=== PATIENT | female | born 1965 | race Caucasian/White ===

== ENCOUNTER 2022-08-12 04:02 | Day surgery (SDC) | payer OTHER ==
[2022-08-12] VITALS (498 sets, daily range): BP systolic 80–138; BP diastolic 45–75
[~2022-08-12] VITALS: Ht 172.7 cm; Wt 65.3 kg
[2022-08-12 07:41] LABS: BASO% 0.6 % (0-3); EOS% 2.9 % (0-8); HEMATOCRIT 39.6 % (37.0-47.0); HEMOGLOBIN 13.4 g/dl (12.0-16.0); LYMPH% 34.6 % (15-41); MEAN CELL VOLUME 89.6 fL CALC (80.0-100.0); MEAN CORPUSCULAR HGB 30.3 pG CALC (26.0-32.0); MEAN CORPUSCULAR HGB CONC 33.8 g/dL CAL (32.0-36.0); MONO% 6.3 % (2-13); NEUT# 2.93 thou/uL (2.00-7.15); NEUT% 55.6 % (42-76); RED BLOOD COUNT 4.42 mill/uL (4.20-5.60); RED CELL DISTRI WIDTH 13.3 % (11.5-15.5)
[2022-08-12 07:59] LABS: ALKALINE PHOSPHATASE 97 u/l (38-126); ANION GAP 12 (6-22 (CALC)); BUN 12 mg/dL (7-17); BUN/CREATININE RATIO 18 (12-20 (CALC)); CARBON DIOXIDE 27 mmol/l (22-30); CHLORIDE 104 mmol/l (95-108); CREATININE 0.7 mg/dL (0.5-1.0); GFR FOR AFR.AMER. > 60 ML/MIN (>=60 (CALC)); GFR OTHER RACES > 60 ML/MIN (>=60 (CALC)); POTASSIUM 3.9 mmol/l (3.5-5.1); SGOT/AST 29 u/l (14-36); SODIUM 139 mmol/l (137-146); TOTAL PROTEIN 8.7 g/dL (6.3-8.2)
[2022-08-12] MEDS ORDERED: INDOMETHACIN50 MG PO (08:36)
[2022-08-12] MEDS ORDERED: METHYLPHENID20 MG PO (08:37)
[2022-08-12] MEDS ORDERED: NALTREXONE50 MG PO ×2 (15:11→15:28)
[2022-08-12] MEDS ORDERED: KLONOPIN2 MG PO ×2 (15:12→15:28)
[2022-08-12] MEDS ORDERED: CLONIDINE0.1 MG PO ×2 (15:12→15:28)
[2022-08-13 03:41] VITALS: BP 133/63
[2022-08-13 06:02] VITALS: BP 133/63
[2022-08-13 06:09] LABS: BASO% 0.1 % (0-3); HEMOGLOBIN 14.7 g/dl (12.0-16.0); IMMATURE GRANULOCYTES 0.2 % (0.0-5.0); LYMPH% 11.3 % (15-41); MEAN CELL VOLUME 91.3 fL CALC (80.0-100.0); MEAN CORPUSCULAR HGB 28.4 pG CALC (26.0-32.0); MEAN CORPUSCULAR HGB CONC 31.1 g/dL CAL (32.0-36.0); MONO% 2.7 % (2-13); NEUT# 9.59 thou/uL (2.00-7.15); NEUT% 85.7 % (42-76); RED BLOOD COUNT 5.17 mill/uL (4.20-5.60); RED CELL DISTRI WIDTH 13.6 % (11.5-15.5)
[2022-08-13 06:18] LABS: HEMATOCRIT 47.2 % (37.0-47.0)
[2022-08-13 06:24] LABS: ALBUMIN 4.4 g/dL (3.2-5.0); ALKALINE PHOSPHATASE 94 u/l (38-126); BILIRUBIN, TOTAL 1.2 mg/dL (0.0-1.4); BUN 8 mg/dL (7-17); BUN/CREATININE RATIO 15 (12-20 (CALC)); CHLORIDE 105 mmol/l (95-108); CREATININE 0.6 mg/dL (0.5-1.0); GFR FOR AFR.AMER. > 60 ML/MIN (>=60 (CALC)); GFR OTHER RACES > 60 ML/MIN (>=60 (CALC)); MAGNESIUM 1.8 mg/dL (1.6-2.3); POTASSIUM 4.2 mmol/l (3.5-5.1); SGOT/AST 35 u/l (14-36); SODIUM 136 mmol/l (137-146)
[2022-08-13 06:26] LABS: ANION GAP 15 (6-22 (CALC)); CARBON DIOXIDE 20 mmol/l (22-30)
[2022-08-13 18:39] VITALS: BP 128/53
[2022-08-13 22:38] VITALS: BP 139/70
[2022-08-14 03:52] VITALS: BP 112/59
[2022-08-14 06:12] LABS: ALBUMIN 3.7 g/dL (3.2-5.0); ALKALINE PHOSPHATASE 69 u/l (38-126); ANION GAP 8 (6-22 (CALC)); BILIRUBIN, TOTAL 0.9 mg/dL (0.0-1.4); BUN 12 mg/dL (7-17); BUN/CREATININE RATIO 22 (12-20 (CALC)); CARBON DIOXIDE 24 mmol/l (22-30); CHLORIDE 109 mmol/l (95-108); CREATININE 0.5 mg/dL (0.5-1.0); GFR FOR AFR.AMER. > 60 ML/MIN (>=60 (CALC)); GFR OTHER RACES > 60 ML/MIN (>=60 (CALC)); SGOT/AST 40 u/l (14-36); SODIUM 138 mmol/l (137-146); TOTAL PROTEIN 6.6 g/dL (6.3-8.2)
[2022-08-14 07:05] VITALS: BP 134/76
== END 2022-08-14 14:19 | disposition home or self-care (01) | DRG 897 ==
LOC: MS2 04:02 → ANR 04:02 → MS2 04:15 → ANR 07:00
PROVIDERS: ATTEND Anesthesiology Critical Care Medicine
DX: F11.20 Opioid dependence, uncomplicated (principal)
CPT/HCPCS: J2060; J2354; J3475